=== PATIENT | female | born 1955 | race African-American/Black ===

== ENCOUNTER → 2017-02-21 | Outpatient (CLI) | payer BC ==
--- NOTE | 2017-02-21 09:50 | RADIOLOGY REPORT (SQ) ---
EXAM DESCRIPTION: HIP LEFT AP/LATERAL COMPLETED DATE/TIME: 02/21/2017 9:25 am REASON FOR STUDY: LEFT HIP PAIN (M25.552) M25.552 PAIN IN LEFT HIP COMPARISON: Bilateral hip films 03/27/2012 NUMBER OF VIEWS: Two views. TECHNIQUE: AP pelvis and additional frog-leg view of the left hip. LIMITATIONS: None. FINDINGS: MINERALIZATION: Normal. LEFT HIP: No fracture or dislocation. No significant joint space narrowing. Mild acetabular rim bon y spurring. RIGHT HIP: No fracture or dislocation. No significant joint space narrowing. Mild acetabular rim ch[place] spurring. PUBIS AND ISCHIUM: No fracture. PELVIS: No fracture. SACRUM: No fracture or dislocation. No worrisome bone lesions. LOWER LUMBAR SPINE: Bilateral facet arthropathy at L5-S1 SOFT TISSUES: No findings. OTHER: No other significant finding. IMPRESSION: NEGATIVE STUDY OF THE LEFT HIP AND PELVIS. NO RADIOGRAPHIC EVIDENCE OF ACUTE INJURY. TECHNICAL DOCUMENTATION: JOB ID: [id number] [employer]- All Rights Reserved
== END ==
LOC: RAD 09:05
PROVIDERS: ATTEND Internal Medicine
DX: M25.552 Pain in left hip (principal)

== ENCOUNTER 2017-12-14 16:14 | Emergency (ER) | payer BC ==
[2017-12-14] MEDS ORDERED: HYDROCODONE/ACETAMINOPHEN 5-325 MG TABLET PO ONE (17:41)
--- NOTE | 2017-12-14 17:42 | ER Document Report ---
ED Medical Screen (RME) - General Chief Complaint: Leg Pain Stated Complaint: LEG PAIN Time Seen by Provider: 12/14/17 17:24 TRAVEL OUTSIDE OF THE [place] IN LAST 30 DAYS: No - HPI Patient complains to provider of: Right leg pain Notes: 12/14/17 17:41 Patient is a 62-year-old female presenting to the emergency room complaining of right leg pain and swelling, recent surgery on the ankle, immobilized, no history of DVT - Related Data Allergies/Adverse Reactions: No Known Allergies Allergy (Verified 06/04/13 09:16) Past Medical History - Past Medical History Cardiac Medical History: Reports: Hx Hypertension Denies: Hx Heart Attack Pulmonary Medical History: Denies: Hx Asthma Neurological Medical History: Denies: Hx Cerebrovascular Accident, Hx Seizures Endocrine Medical History: Reports: Hx Diabetes Mellitus Type 2 GI Medical History: Denies: Hx Hepatitis, Hx Hiatal Hernia, Hx Ulcer Infectious Medical History: Denies: Hx Hepatitis Past Surgical History: Reports: Hx Appendectomy. Denies: Hx Mastectomy, Hx Open Heart Surgery, Hx Pacemaker - Immunizations Hx Diphtheria, Pertussis, Tetanus Vaccination: No Physical Exam - Vital signs Vitals: Temp Pulse Resp BP Pulse Ox 97.5 F 82 18 139/72 H 96 12/14/17 16:26 12/14/17 16:26 12/14/17 16:26 12/14/17 16:26 12/14/17 16:26 Course - Vital Signs Vital signs: Temp Pulse Resp BP Pulse Ox 97.5 F 82 18 139/72 H 96 12/14/17 16:26 12/14/17 16:26 12/14/17 16:26 12/14/17 16:26 12/14/17 16:26 Doctor's Discharge - Discharge Referrals: GABINO MCALLISTER MD [Primary Care Provider] - Follow up as needed
[2017-12-14 19:13] VITALS: BP 123/84
--- NOTE | 2017-12-14 19:13 | ER Document Report ---
ED General - General Chief Complaint: Leg Pain Stated Complaint: LEG PAIN Time Seen by Provider: 12/14/17 17:24 TRAVEL OUTSIDE OF THE [place] IN LAST 30 DAYS: No - HPI Patient complains to provider of: Right leg pain Notes: Patient coming in for right leg swelling and pain. 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 Patient states significant swelling of the right leg proximal to the surgery site. Patient states she has been elevating her leg at home while sitting in a recliner however no relief of swelling. Denies a history of DVT PE in the past. Patient denies fevers chills nausea vomiting diarrhea - Related Data Allergies/Adverse Reactions: No Known Allergies Allergy (Verified 12/14/17 18:02) Past Medical History - Social History Smoking Status: Never Smoker Chew tobacco use (# tins/day): No Frequency of alcohol use: None Drug Abuse: None Family History: Reviewed & Not Pertinent Patient has suicidal ideation: No Patient has homicidal ideation: No - Past Medical History Cardiac Medical History: Reports: Hx Hypertension Denies: Hx Heart Attack Pulmonary Medical History: Denies: Hx Asthma Neurological Medical History: Denies: Hx Cerebrovascular Accident, Hx Seizures Endocrine Medical History: Reports: Hx Diabetes Mellitus Type 2 Renal/ Medical History: Denies: Hx Peritoneal Dialysis GI Medical History: Denies: Hx Hepatitis, Hx Hiatal Hernia, Hx Ulcer Infectious Medical History: Denies: Hx Hepatitis Past Surgical History: Reports: Hx Appendectomy, Hx Orthopedic Surgery - LGT. Denies: Hx Mastectomy, Hx Open Heart Surgery, Hx Pacemaker - Immunizations Hx Diphtheria, Pertussis, Tetanus Vaccination: No Review of Systems - Review of Systems Constitutional: No symptoms reported EENT: No symptoms reported Cardiovascular: No symptoms reported Respiratory: No symptoms reported Gastrointestinal: No symptoms reported Genitourinary: No symptoms reported Female Genitourinary: No symptoms reported Musculoskeletal: Leg swelling Skin: No symptoms reported Hematologic/Lymphatic: No symptoms reported Neurological/Psychological: No symptoms reported -: Yes All other systems reviewed and negative Physical Exam - Vital signs Vitals: Temp Pulse Resp BP Pulse Ox 97.5 F 82 18 139/72 H 96 12/14/17 16:26 12/14/17 16:26 12/14/17 16:26 12/14/17 16:26 07/18/18 16:26 Interpretation: Normal - General General appearance: Appears well, Alert - HEENT Head: Normocephalic, Atraumatic Eyes: Normal Pupils: PERRL - Respiratory Respiratory status: No respiratory distress Chest status: Nontender Breath sounds: Normal Chest palpation: Normal - Cardiovascular Rhythm: Regular Heart sounds: Normal auscultation Murmur: No - Abdominal Inspection: Normal Distension: No distension Bowel sounds: Normal Tenderness: Nontender Organomegaly: No organomegaly - Back Back: Normal, Nontender - Extremities General upper extremity: Normal inspection, Nontender, Normal color, Normal ROM , Normal temperature General lower extremity: Nontender, Edema - 1+ on the right with a bandaged to the right ankle there is no blushing on the bandage and a bandage was recently placed on by her surgeon the bandage was not removed, Normal color, Normal ROM, Normal temperature, Normal weight bearing. No: Normal inspection - See edema note, Jacky's sign - Neurological Neuro grossly intact: Yes Cognition: Normal Orientation: AAOx4 [place] Coma Scale Eye Opening: Spontaneous [place] Coma Scale Verbal: Oriented [place] Coma Scale Motor: Obeys Commands [place] Coma Scale Total: 15 Speech: Normal Motor strength normal: LUE, RUE, LLE, RLE Sensory: Normal - Psychological Associated symptoms: Normal affect, Normal mood - Skin Skin Temperature: Warm Skin Moisture: Dry Skin Color: Normal Course - Re-evaluation Re-evalutation: 12/14/17 23:31 This ultrasound does not show any signs of DVT. Patient will be discharged home follow-up primary care physician. Patient was educated to elevate her leg above the level of her heart to help out with any swelling. - Vital Signs Vital signs: Temp Pulse Resp BP Pulse Ox 97.9 F 66 16 123/84 95 12/14/17 19:08 12/14/17 19:08 12/14/17 19:08 12/14/17 19:08 12/14/17 19:08 Discharge - Discharge Clinical Impression: Leg swelling Condition: Good Disposition: HOME, SELF-CARE Instructions: Edema, Peripheral ([facility]), Leg Pain Nonspecific ([facility]) Additional Instructions: At this time your physical examination and ultrasound did not show any signs of a DVT. More likely her swelling is due to the recent surgery. We recommend elevating her legs above the level of the heart whenever resting.. Would recommend taking 600 mg of Motrin along with 650 mg of Tylenol together 3 times a day for pain control if your surgeon has ok'ed you to take anti-inflammatory medications. Follow-up with your primary care physician Referrals: GABINO MCALLISTER MD [ACTIVE STAFF] - Follow up as needed
--- NOTE | 2017-12-14 19:58 | RADIOLOGY REPORT (SQ) ---
EXAM DESCRIPTION: VENOUS UNILATERAL LOWER COMPLETED DATE/TIME: 12/14/2017 7:12 pm REASON FOR STUDY: RIGHT LEG PAIN COMPARISON: None. TECHNIQUE: Dynamic and static sahni scale and color images acquired of the right leg venous system. S elected spectral images acquired with additional compression and augmentation maneuvers. The contrala teral common femoral vein and saphenofemoral junction were also imaged. Images stored on PACS. LIMITATIONS: None. FINDINGS: COMMON FEMORAL: Normal phasicity, compression and augmentation. No visualized echogenic ma terial on sahni scale. No defects on color images. FEMORAL: Normal compression and augmentation. No visualized echogenic material on sahni scale. No defe cts on color images. POPLITEAL: Normal compression, augmentation. No visualized echogenic material on sahni scale. No defec ts on color images. CALF VESSELS: Normal compression, augmentation. No visualized echogenic material on sahni scale. No de fects on color images. GSV and SSV: Normal compression, augmentation. No visualized echogenic material on sahni scale. No def ects on color images. ANY DEEP VENOUS INSUFFICIENCY: Not evaluated. ANY EVIDENCE OF POPLITEAL CYST: No. OTHER: No other significant finding. CONTRALATERAL COMMON FEMORAL VEIN AND SAPHENOFEMORAL JUNCTION: Normal phasicity, compression and augmentation. No visualized echogenic material on sahni scale. No de fects on color images. IMPRESSION: NO EVIDENCE OF DVT OR SVT IN THE RIGHT LEG. TECHNICAL DOCUMENTATION: JOB ID: [id number] [employer]- All Rights Reserved Reading location - IP/workstation name: [email or web address]
== END 2017-12-14 19:20 | disposition home or self-care (01) ==
LOC: ER 16:14
DX: M79.89 Other specified soft tissue disorders (principal); M79.604 Pain in right leg; I10 Essential (primary) hypertension; E11.9 Type 2 diabetes mellitus without complications
CPT/HCPCS: 93971; 99283

== ENCOUNTER → 2019-07-27 | Outpatient (CLI) | payer BC ==
--- NOTE | 2019-07-27 15:03 | RADIOLOGY REPORT (SQ) ---
EXAM DESCRIPTION: U/S RETROPERITON (RENAL/AORTA) COMPLETED DATE/TIME: 07/27/2019 2:40 pm REASON FOR STUDY: R94.4 ABNORMAL RESULTS OF KIDNEY FUNCTION STUDIES R94.4 ABNORMAL RESULTS OF KIDNE Y FUNCTION STUDIES COMPARISON: 11/23/2017 TECHNIQUE: Dynamic and static grayscale images acquired of the kidneys and bladder and recorded on P ACS. Additional selected color Doppler and spectral images recorded. LIMITATIONS: Limited exam secondary to body habitus. FINDINGS: RIGHT KIDNEY: Asymmetrically small measuring 7.3 cm. Normal echogenicity. No solid or kraig picious masses. No hydronephrosis. No calcifications. LEFT KIDNEY: Left kidney measures 9.9 cm. Normal echogenicity. No solid or suspicious masses. No hy dronephrosis. No calcifications. BLADDER: Decompressed bladder. Limited evaluation. OTHER FINDINGS: No other significant finding. IMPRESSION: No hydronephrosis. Asymmetrically small right kidney. Otherwise, unremarkable renal ultrasound. TECHNICAL DOCUMENTATION: JOB ID: [id number] 2010 [employer]- All Rights Reserved Reading location - IP/workstation name: [email or web address]
== END ==
LOC: RAD 13:40
PROVIDERS: ATTEND Internal Medicine
DX: R94.4 Abnormal results of kidney function studies (principal)
CPT/HCPCS: 76770